=== PATIENT | male | born 1990 | race Caucasian/White ===

== ENCOUNTER 2022-11-25 09:30 | Emergency (ER) | payer SELFPAY ==
--- OUTSIDE RECORDS SUMMARY | 2022-11-25 09:34 | XMS REPORT | Continuity of Care Document ---
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 PELVIS W/CONT 49720 (Continued) control; mA and/or kV adjustment per patient size (includes targeted exams where dose is matched to clinical indication); or iterative reconstruction. Contrast material: ISOVUE 300; Contrast volume: 100 ml; Contrast route: INTRAVENOUS (IV); REPORTING DATA: Count of CT and Cardiac NM exams in prior 12 months: This patient has received 0 known CTs and 0 known cardiac nuclear medicine studies in the 12 months prior to the current study. COMPARISON: No relevant prior studies available. FINDINGS: Liver: Within normal limits. No mass. Gallbladder and bile ducts: No calcified stones. No ductal dilation. Pancreas: Within normal limits. No ductal dilation. Spleen: Within normal limits. No splenomegaly. Adrenal glands: Normal. No mass. Kidneys and ureters: Within normal limits. No hydronephrosis or hydroureter. Stomach and bowel: Moderate amount of fecal material within the colon. No evidence of bowel obstruction. Appendix: No evidence of appendicitis. Intraperitoneal space: No free air. No significant fluid collection. Vasculature: No abdominal aortic aneurysm. Retroaortic left renal vein. Lymph nodes: No enlarged lymph nodes. Urinary bladder: Unremarkable as visualized. Reproductive: Unremarkable as visualized. Bones/joints: Mild hypertrophic changes within the spine. A chronic pars interarticularis defect on the right at L5 without significant spondylolisthesis. Soft tissues: Unremarkable. IMPRESSION: CT Chest With Contrast; Diagnostic No CT evidence of acute abnormality within the chest. CT Abdomen And Pelvis WithContrast No CT evidence of acute abnormality within the abdomen or pelvis. PAGE 2 Signed Report (CONT INUED) Name: RANGEL BURCIAGA [facility] : 1990 Age/S: 32 / M [address] [place] [address] Blvd Unit #: [id number] Loc: [place] [address] Phys: Eduardo West MD Acct: [id number] Dis Date: Status: REG ER PHONE #: [phone] Exam Date: 06/12/2022 1705 FAX #: [phone] Reason: rib pain, back pain, chest and abd seatbelt sig EXAMS: CPT CODE: [id number] CT ABD PELVIS W/CONT 77005 (Continued) at 1834 Reported and signed by: Kee Pinzon M.D. CC: Eduardo West MD Technologist:RT Dionna(R)(CT) CTDI: DLP: Trnscb Date/Time: 06/12/2022 (1833) [email or web address] Orig Print D/T: S: 06/12/2022 (1833) PAGE 3 Signed Report- XR HUMERUS 2 + V [id number] 00:00:00 [facility] 1990 Sex: M FAX: Eduardo Juarez MD [phone] [place]: St: REG Name: RANGEL BURCIAGA [facility] [place] ER : 1990 Age/S: 32/M [address] [facility] Unit #: [id number] Loc: [place] [address] Phys: Eduardo West MD Acct: [id number] Dis Date: Status: [facility] ER PHONE #: [phone] Exam Date: 06/12/20224 FAX #: [phone] Reason: ARM PAIN EXAMS: CPT CODE: [id number] XR HUMERUS 2 + [place] [address] PROCEDURE INFORMATION: Exam: XR Left Humerus Exam date and time: 06/12/2022 4:37 PM Age: 32 years old Clinical indication: Left arm pain. TECHNIQUE: Imaging protocol: Radiologic exam of the left humerus. Views: 2 or more views. AP and Lateral COMPARISON: No relevant prior studies available. FINDINGS: Bones/joints: No fracture of other a cute osseous abnormality. No bony destructive lesions. The shoulder and elbow are grossly normal. Ifthere is a suspicion of injury to the shoulder or elbow, specific radiographs of the affected joint are recommended. Soft tissues: No radiopaque foreign bodies. Notes: If there is further concern, recommend follow- up radiographs or bone scan for complete assessment. IMPRESSION: Negative left humerus. at 1706 Reported and signedby: Garry Solares M.D. CC: Eduardo West MD Technologist: Asha Huber, RT(R); Richa CarsonRT(R) [facility]nrock[facility] Date/Time/By: 06/12/2022 (1705) : By: [email or web address] Orig Print D/T: S: 06/12/2022 (343)PAGE 1 Signed Report- XR SHOULDER 2 + V [id number] 00:00:00 [facility] 1990 Sex: M FAX: Eduardo Juarez MD [phone] [place]: St: REG Name: RANGEL BURCIAGA [facility] : 1990 Age/S: 32/M [address] [place] [address] Blvd Unit #: [id number] Loc: [place] [address] Phys: Eduardo West MD Acct: [id number] Dis Date: Status: REG ER PHONE #: [phone] Exam Date: 06/12/2022 1653 FAX #: [phone] Reason: SHOULDER PAIN EXAMS: CPT CODE: [id number] XR SHOULDER 2 + [place] [address] PROCEDURE INFORMATION: Exam: XR Left Shoulder Exam date and time: 06/12/2022 4:37 PM Age: 32 years old Clinical indication: Left shoulder pain. TECHNIQUE: Imaging protocol: Radiologic exam of the left shoulder. Views: 2 or more views. AP INT/ EXT ROTATION, SCAPULAR Y COMPARISON: No relevant prior studies available. FINDINGS: Bones/joints: No fracture, dislocation or acute change. The acromioclavicular and glenohumeral joints areunremarkable. No degenerative changes or destructive lesions. Soft tissues: There are no radiopaque foreign bodies. Notes: If there is further concern, follow-up radiographs or MRI of the shoulder may be performed for complete assessment. IMPRESSION: Negative left shoulder. at 1730 Reported and signed by: Garry Solares M.D. CC: Eduardo West MD Technologist: Asha Huber, RT(R); Richa Carson RT(R) Trnscrd Date/Time/By: 06/12/2022 (1729) : By: [email or web address] Orig Print D/T: S: 06/12/2022 (1729) PAGE 1 Signed Report- XR ELBOW 2 VIEWS [id number] 00:00:00 [facility] : 1990 Sex: M FAX: Eduardo Antony MD [phone] [place]: St: REG Name: RANGEL BURCIAGA [facility] : 1990 Age/S: 32/M [address] [place] [address] Unit #: [id number] Loc: [place] [address] Phys: Eduardo West MD Acct: [id number] Dis Date: Status: REG ER PHONE #: [phone] Exam Date: 06/12/20221653 FAX #: [phone] Reason: ELBOW PAIN EXAMS: CPT CODE: [id number] [place]R [place] [address] [place] [address] PROCEDURE INFORMATION: Exam: XR Left Elbow Exam date and time: 06/12/2022 4:37 PM Age: 32 years old Clinical indication: Other: Elbow pain TECHNIQUE: Imaging protocol: Radiologic exam of the left elbow. Views: 1 or 2 views. AP and Lateral COMPARISON: No relevant prior studies available. FINDINGS: Bones/joints: There is normal alignment without fractures or dislocations. The joint spaces are normal. There is no joint effusion. The radial head, olecranon and distal humeral condyle regions are unremarkable. Soft tissues: There is noelbow region soft tissue swelling. There are no radiopaque foreign bodies. Notes: If there is further concern, recommend follow-up radiographs or MRI for complete assessment. IMPRESSION: No fracture ordislocation. at 1734 Reported and signed by: Sukumar Jiménez M.D. CC: Eduardo West MD Technologist: Asha Huber RT(R); RT Rox(R) Trnscrd Date/Time/By: 06/12/2022 (1733) : By: [email or web address] Orig Print D/T: S: 06/12/2022 (0197) PAGE 1 Signed ReportNEEDLE EMG, 2 [id number] 10:24:00[facility] 1990 Sex: MINTRAOPERATIVE MONITORING REPORT Patient Name: Rangel Burciaga [facility] Surgery Date: 02/05/2020 [place] ELITE: [id number] Monitoring began at 08:27 and ended at 09:21 Surgeon:Alex Linares MD Examining Neurologist: Lupe Naqvi MD Monitoring Technologists: Cornelius Roberts Procedure: L5-S1 Decompression Free-running EMG of left and right Vastus Lateralis (L2-4), Tibialis Anterior (L4-5), Lateral Gastrocnemius (L5-S2), and Abductor Hallucis (S1-S2). Description: Intraoperative neurophysiological monitoring was performed free-running EMG of L2-S2 innervated muscle groups. A real-time connection with the examining neurologist was established and maintained throughout the operative procedure by the monitoring technologist. Free-running EMG of L2-S2 innervated muscle group was monitored continuously throughout the operative procedure with no sustained neurotonic discharges seen. Conclusion: The absence of sustained neurotonic discharges on free-running EMG suggests that the nerve roots monitored remained undisturbed Lupe Naqvi M.D. FL, FLUORO, NON-SPECIFIC, UP TO 1 [id number] 09:37:00 Reason for exam:->[facility]ization [facility] 1990 Sex: MFluoroscopic unit utilized for a procedure performed in the OR. No interpretation was requested. Refer to the operative report for findings. Refer to PACS for patient radiation dose information.FL, FLUORO, NON-SPECIFIC, UP TO 1 [id number] 09:02:00Reason for exam:->[facility]inectomy [facility] : 1990 Sex: MFINALREPORT C-ARM FLUOROSCOPY HISTORY: Lumbar laminectomy COMPARISON: 02/03/2020 FINDINGS: C-arm fluoroscopy was provided in the operating room. Fluoroscopy time was reported as 20.8 seconds. No radiologist was present. Single spot lateral intraoperative radiograph of the lumbar spine was obtained. This demonstrates a posterior localization device dorsal to L5-S1. This level was communicated to Dr. Linares in the operating room who was in agreement with this assessment. Signed: Yuliet Carr MDReport Verified Date/Time: 02/05/2020 09:02:34 Reading Location: [address] Transitional Reading Room SARS-COV2/RT-PCR ([facility])2020-02-04 15:49:00 Test Item Value Reference Range Interpretation Comments SARS-COV2/RT-PCR (test Negative Not Detected, Negative, code = [id number]) See external report for linked test SARS-COV-[address] [facility] (test code = [id number]) Negative result for this test determines that SARS-CoV-2 RNA was not present in the specimen above the Limit of Detection (LOD). However, Negative results do not preclude SARS-CoV-2 infection and should not be used as the sole basis for treatment or patient management decisions. Negative results must be combined with clinical observations, patient history, and epidemiological information. A false negative result may occur if a specimen is improperly collected, transported or handled. A false negative result should be considered if patient's recent exposures or clinical presentation indicate that COVID-19 (SARS-CoV-2) is likely and diagnostic tests for other causes of illness are negative. Re-testing should be considered in cases of suspected false negatives.The limit of detection for this assay is 800 copies/mL.This SARS CoV-2 test is a real-time RT-PCR test intended for the qualitative detection of nucleic acid from SARS-CoV-2 in a nasopharyngeal swab specimen collected from individuals suspected of COVID-19 by their healthcare provider.This test has not been Food and Drug Administration (FDA) cleared or approved. This is a modified version of an approved Emergency Use Authorization (EUA) and is in the process of review by the FDA. Once authorized by the FDA, the issued EUA will be effective until the declaration that circumstances exist justifying the authorization of the emergency use ofin vitro diagnostic tests for detection and/or diagnosis of COVID-19 is terminated under Section 564(b)(2) of the Act or the EUA is revoked under Section 564(g) of the Act.Fact Sheet for Healthcare Prov iders:https://www.better..[employer]/sites/default/files/product/documents/Fact_Sheet_HC _Fthnbinqz_Gqfy_VKOW-QzE-6.pdfFact Sheet for Healthcare Patients:https://www.better..[employer]/sites/default/files/product/docume nts/Beeu_Bliaj_Vuctcgre_Iawj_NFEW-SmX-5.pdfPerforming Laboratory:[facility].[place], [place] [address]DED, CHEST, 1 VIEW, NON [id number] 06:20:00Reason for exam:->pre opShould this be performed at the bedside?->Yes [facility] : 1990 Sex: MFINALREPORT History: Preoperative evaluation, surgery unspecified. Comparison: None.Findings: A single view of the chest is submitted. The cardiomediastinal contours are unremarkable. There is no focal consolidation, pneumothorax, large pleural effusion or evidence of overt pulmonary edema. There is no acute bony abnormality. Impression: No active cardiopulmonary abnormality. Signed:Damon Moya MDReport Verified Date/Time: 02/04/2020 06:20:42 MR, SPINE, LUMBAR, [id number] 22:22:00Unlisted Reason for Exam - Click Yes and Enter Reason Below- >YesUnlisted Reason for Exam->known spinal mass, now leg weak and gradual incontinenceK[facility]AL[facility] : 1990 Sex: MFINALREPORT EXAM: MR, SPINE, LUMBAR, WITH \T\ WITHOUT CONTRAST CLINICAL INDICATION: Right leg weakness with L5-S1 mass. TECHNIQUE: Pre-contrast sagittal T1-, T2-, and T2-w fat-saturatedimages, and axial T1- and T2-w images of the lumbar spine. Post-contrast axial T1-w and sagittal T1-w fat-saturated images. Intravenous contrast material was administered for the examination. COMPARISON: None. FINDINGS:Spine Numbering: For purposes of this dictation, it is assumed that there are 5 epo-hon-tgnuzyu, lumbar-type vertebrae, and the most caudal fully segmented lumbar vertebra is labeled L5. Alignment: Normal Vertebral Bodies: Normal in height Marrow Signal: Expected Intervertebral Discs:Multilevel disc dessication at L4-L5 and L5-S1 without loss of disc space height Conus Medullaris: Terminates at a normal level, L1 Cauda Equina: Normal Paraspinal Soft Tissues: Normal Individual Levels: There is a right subarticular cystic structure at L5-S1 with measurements of 1.3 x 1.2 x 1.4 cm (AP, TRV, SI) with T2 hyperintensity and layering material with T1 hyperintensity. No associated internal enhancement. The cystic structure impinges the descending right S1 nerve root. Otherwise, no significant degenerative changes. No spinal canal or foraminal stenosis at other levels. IMPRESSION: Rightsubarticular cystic structure at L5-S1 with impingement of the descending right S1 nerve root. Differential includes a spinal synovial cyst or ganglion cyst. Signed: Pallavi Beyer MDReport Verified Date/Time: 02/03/2020 22:22:29 URINALYSIS W/ REFLEX URINE CULTURE 2020-02-03 20:33:00 Test Item Value Reference Range Interpretation Comments COLOR (BEAKER) (test code = Yellow 470) CLARITY (BEAKER) (test code = Clear 469) SPECIFIC GRAVITY UA (BEAKER) 1.010 1.001-1.035 (test code = 468) PH UA (BEAKER) (test code = 6.5 5.0-8.0 467) PROTEIN UA (BEAKER) (test code Negative Negative = 464) GLUCOSE UA (BEAKER) (test code Negative Negative = 365) KETONES UA (BEAKER) (test code Negative Negative = 371) BILIRUBIN UA (BEAKER) (test Negative Negative code = 462) BLOOD UA (BEAKER) (test code = Negative Negative 461) NITRITE UA (BEAKER) (test code Negative Negative = 465) LEUKOCYTE ESTERASE UA (BEAKER) Negative Negative (test code = 466) UROBILINOGEN UA (BEAKER) (test 0.2 mg/dL 0.2-1.0 code = 463) BACTERIA (BEAKER) (test code = None Seen 517) RBC UA-MANUAL (BEAKER) (test None Seen /HPF code = 1659) WBC UA-MANUAL (BEAKER) (test None Seen /HPF code = 1661) SQUAMOUS EPITHELIAL MANUAL <5 /HPF (BEAKER) (test code = 1663) SOURCE(BEAKER) (test code = 2795) COMPREHENSIVE METABOLIC [id number] 20:13:00 Test Item Value Reference Range Interpretation Comments TOTAL PROTEIN 6.9 gm/dL 6.0-8.5 (BEAKER) (test code = 770) ALBUMIN (BEAKER) 4.2 g/dL 3.5-5.0 (test code = 1145) ALKALINE PHOSPHATASE 57 U/L 30-115 (BEAKER) (test code = 346) BILIRUBIN TOTAL 0.4 mg/dL 0.1-1.2 (BEAKER) (test code = 377) SODIUM (BEAKER) (test 138 meq/L 135-148 code = 381) POTASSIUM (BEAKER) 4.0 meq/L 3.6-5.5 (test code = 379) CHLORIDE (BEAKER) 101 meq/L 98-106 (test code = 382) CO2 (BEAKER) (test 27 meq/L 20-29 code = 355) BLOOD UREA NITROGEN 12 mg/dL 10-26 (BEAKER) (test code = 354) CREATININE (BEAKER) 0.93 mg/dL 0.50-1.20 (test code = 358) GLUCOSE RANDOM 89 mg/dL 70-110 (BEAKER) (test code = 652) CALCIUM (BEAKER) 9.3 mg/dL 8.5-10.5 (test code = 697) AST (SGOT) (BEAKER) 31 U/L 5-40 (test code = 353) ALT (SGPT) (BEAKER) 39 U/L 5-50 (test code = 347) EGFR (BEAKER) (test INSUFFIC IENT CLINICAL code = 1092) DATA TO CALCULA TE ESTIMATED GFR. Spot Machine Operator ID - [id number] ID - [id number] ID - [id number] ID - [id number] ID - [id number] ID - [id number] ID - [id number] ID - [id number] ID - [id number] ID - [id number] ID - [id number] ID - [id number] ID - [id number] ID - [id number] ID - [id number] ID - [id number] ID - [id number] ID - [id number] ID - [id number] 19:59:00 Test Item Value Reference Range Interpretation Comments PROTIME (BEAKER) (test 10.5 seconds 9.3-12.0 Final Information code = 759) (Auto Output) INR (BEAKER) (test 0.96 <=5.90 Final Inf ormation code = 370) (Auto Output) PARTIAL THROMBOPLASTIN 24.1 seconds 23.0-35.0 Final Information TIME (BEAKER) (test (Auto Ou tput) code = 760) RECOMMENDED COUMADIN/WARFARIN INR THERAPY RANGESSTANDARD DOSE: 2.0 - 3.0 Includes: PROPHYLAXIS for venous thrombosis, systemic embolization; TREATMENT for venous thrombosis and/or pulmonary embolus.HIGH RISK: Target INR is 2.5-3.5 for patients with mechanical heart valves.CBC W/PLT COUNT & AUTO [id number] 19:46:00 Test Item Value Reference Range Interpretation Comments WHITE BLOOD CELL COUNT (BEAKER) 11.6 K/ L 4.0-10.0 H (test code = 775) RED BLOOD CELL COUNT (BEAKER) 4.75 M/ L 4.20-5.80 (test code = 761) HEMOGLOBIN (BEAKER) (test code = 15.8 GM/DL 13.0-16.8 410) HEMATOCRIT (BEAKER) (test code = 44.9 % 36.0-50.0 411) MEAN CORPUSCULAR VOLUME (BEAKER) 94.5 fL 82.0-99.0 (test code = 753) MEAN CORPUSCULAR HEMOGLOBIN 33.3 pg 27.0-33.0 H (BEAKER) (test code = 751) MEAN CORPUSCULAR HEMOGLOBIN CONC 35.2 GM/DL 32.0-36.0 (BEAKER) (test code = 752) RED CELL DISTRIBUTION WIDTH 11.5 % 12.0-15.0 L (BEAKER) (test code = 412) PLATELET COUNT (BEAKER) (test 245 K/CU MM 150-430 code = 756) MEAN PLATELET VOLUME (BEAKER) 9.1 fL 6.0-11.5 (test code = 754) NUCLEATED RED BLOOD CELLS 0 /100 WBC 0-0 (BEAKER) (test code = 413) NEUTROPHILS RELATIVE PERCENT 64 % (BEAKER) (test code = 429) LYMPHOCYTES RELATIVE PERCENT 26 % (BEAKER) (test code = 430) MONOCYTES RELATIVE PERCENT 7 % (BEAKER) (test code = 431) EOSINOPHILS RELATIVE PERCENT 3 % (BEAKER) (test code = 432) BASOPHILS RELATIVE PERCENT 0 % (BEAKER) (test code = 437) NEUTROPHILS ABSOLUTE COUNT 7.35 K/ L 1.80-8.00 (BEAKER) (test code = 670) LYMPHOCYTES ABSOLUTE COUNT 2.99 K/ L 1.48-4.50 (BEAKER) (test code = 414) MONOCYTES ABSOLUTE COUNT (BEAKER) 0.80 K/ L 0.00-1.30 (test code = 415) EOSINOPHILS ABSOLUTE COUNT 0.29 K/ L 0.00-0.50 (BEAKER) (test code = 416) BASOPHILS ABSOLUTE COUNT (BEAKER) 0.04 K/ L 0.00-0.20 (test code = 417) IMMATURE GRANULOCYTES-RELATIVE 1 % 0-0 H PERCENT (BEAKER) (test code = 5473)
[2022-11-25] MEDS ORDERED: FLUORESCEIN SODIUM 1 MG/WRAP ONE (10:02)
[2022-11-25] MEDS ORDERED: TETRACAINE HCL 0.5% 4ML OPTH ONE (10:02)
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
--- NOTE | 2022-11-25 10:10 | ER ---
Nurse's Notes [facility] Name: Rangel Darby Age: 32 yrs Sex: Male : 1990 Arrival Date: 11/25/2022 Time: 09:30 Bed 11 Private MD: Diagnosis: Other acute conjunctivitis Presentation: 11/25 09:50 Chief complaint: Patient states: Bilateral eyes burning, left eye worse. jl7 09:50 Coronavirus screen: At this time, the client does not indicate any symptoms associated jl with coronavirus-19. Ebola Screen: No symptoms or risks identified at this time. Initial Sepsis Screen: Does the patient meet any 2 criteria? No. Patient's initial sepsis screen is negative. Does the patient have a suspected source of infection? No. Patient's initial sepsis screen is negative. Risk Assessment: Do you want to hurt yourself or someone else? Patient reports no desire to harm self or others. Onset of symptoms is unknown. 09:50 Method Of Arrival: Ambulatory jl7 09:50 Acuity: CHANDAN 3 jl7 Triage Assessment: 10:08 General: Appears in no apparent distress. uncomfortable, Behavior is calm, cooperative, jl7 appropriate for age. Pain: Complains of pain in left eye Pain currently is 2 out of 10 on a pain scale. at worst was 9 out of 10 on a pain scale. EENT: Eyes are tearing on left eye Sclera/Cornea are reddened in left eye. Historical: - Allergies: 10:08 No Known Allergies; jl7 - Home Meds: 10:08 None [Active]; jl7 - PMHx: 10:08 None; jl7 - PSHx: 10:08 None; jl7 - Immunization history:: Adult Immunizations unknown. - Social history:: Smoking status: Patient reports the use of cigarette tobacco products. Vital Signs: 09:50 BP 114 / 66; Pulse 66; Resp 17; Temp 97.7; Pulse Ox 100% ; Weight 77.11 kg; Height 5 jl7 ft. 9 in. ; Pain 2/10; 09:50 Body Mass Index 25.10 (77.11 kg, 175.26 cm) jl7 09:50 Pain Scale: Adult jl7 Visual Acuity: 09:55 Left Eye Visual acuity 20/30, ; Right Eye Visual acuity 20/15, ; Both Eyes Visual jl7 acuity 20/15; With Lenses; ED Course: 09:34 Patient arrived in ED. mg5 09:34 Kate Maxwell [facility] jh7 09:34 Kendall Guy MD is Attending Physician. jh7 09:47 Carlos Masters, RN is Primary Nurse. jl7 09:55 Patient has correct armband on for positive identification. Provided Education on: Use jl7 of call zayas. 10:07 Triage completed. jl7 10:08 Arm band placed on right wrist. jl7 Administered Medications: 10:05 Drug: Fluorescein Ophthalmic Strip 1 strip Ophthalmic once Route: Ophthalmic; Site: jl7 left eye; 10:05 Drug: Tetracaine Ophthalmic Drops 0.5 % 1 drops Ophthalmic once Route: Ophthalmic; jl7 Site: left eye; 10:12 Follow up: Response: No adverse reaction jl7 10:13 Follow up: Response: No adverse reaction jl7 10:24 Drug: Dexamethasone IM 10 mg IM once Route: IM; Site: right deltoid; jl7 10:37 Follow up: Response: No adverse reaction jl7 Medication: 09:55 VIS not applicable for this client. jl7 Outcome: 10:09 Discharge ordered by . jh7 10:38 Discharged to home ambulatory, jl7 10:38 Condition: stable 10:38 Discharge instructions given to patient, Instructed on discharge instructions, follow up and referral plans. medication usage, Demonstrated understanding of instructions, follow-up care, medications, Prescriptions given X 1, 10:38 Patient left the ED. jl7 Signatures: Carlos Masters RN RN jl7 Kate Maxwell FNP PREVENTATIVE MAINTENANCE TECHNICIAN [facility] Lillie Aldana 5
[2022-11-25] MEDS ORDERED: dexAMETHasone 10 MG/ML VIAL ONE (10:28)
[2022-11-25 10:53] VITALS: BP 114/66; TEMP 97.7; O2SAT 100
== END 2022-11-25 10:38 | disposition home or self-care (01) ==
LOC: ER 09:30
DX: H10.32 Unspecified acute conjunctivitis, left eye (principal)
CPT/HCPCS: 96372; 99284; J1100

== ENCOUNTER → 2023-03-17 | Emergency (ER) | payer SELFPAY ==
[~2023-03-17] MED LIST: DIPHENHYDRAMINE 50 MG/ML VIAL ONE; KETOROLAC 30 MG/ML INJ ONE; METOCLOPRAMIDE 10 MG/2mL INJ ONE; NA CHLORIDE 0.9% 1,000 ML ONE; dexAMETHasone 10 MG/ML VIAL ONE
--- NOTE | 2023-03-17 20:47 | EDPHYS ---
Physician Documentation [facility] Name: Rangel aDrby Age: 33 yrs Sex: Male : 1990 Arrival Date: 03/17/2023 Time: 17:32 Bed 15 Private MD: PETER Physician Mike Betancourt HPI: 03/17 21:20 This 33 yrs old Male presents to ER via Ambulatory with complaints of Nausea/Vomiting, kb Migraines. 21:20 Patient is a 33-year-old male who presents for headache that got bad at 3 PM. States he kb has had headaches daily for the last year and some are as bad as this 1 other times it is tolerable. States he takes Tylenol with codeine when the headaches are more severe but it did not work today. Reports nausea and vomiting.. 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 - Social history:: Smoking status: Patient reports the use of cigarette tobacco products, smokes one-half pack cigarettes per day. ROS: 21:18 Constitutional: Negative for fever, chills, and weight loss, kb 21:18 Abdomen/GI: Positive for nausea and vomiting, 21:18 Neuro: Positive for headache, 21:18 All other systems are negative, Exam: 21:18 Head/Face: Normocephalic, atraumatic. Eyes: Pupils equal round and reactive to light, kb extra-ocular motions intact. Lids and lashes normal. Conjunctiva and sclera are non-icteric and not injected. Cornea within normal limits. Periorbital areas with no swelling, redness, or edema. ENT: Moist Mucous membranes Cardiovascular: Regular rate Respiratory: Respirations even and unlabored. No increased work of breathing. Talking in full sentences Skin: Warm, dry with normal turgor. Normal color. MS/ Extremity: Pulses equal, no cyanosis. Neurovascular intact. Full, normal range of motion. Neuro: Awake and alert, GCS 15, oriented to person, place, time, and situation. Moves all extremities. Normal gait. 21:18 Constitutional: The patient appears alert, awake, in obvious pain, Vital Signs: 18:03 BP 125 / 82; Pulse 74; Resp 16; Temp 97.6(O); Pulse Ox 100% on R/A; Weight 70.31 kg; tl4 Height 5 ft. 10 in. ; Pain 10/10; 20:32 BP 112 / 68; Pulse 59; Resp 15 S; Pulse Ox 98% on R/A; jw7 21:00 BP 112 / 66; Pulse 60; Resp 15 S; Pulse Ox 99% on R/A; jw7 18:03 Body Mass Index 22.24 (70.31 kg, 177.8 cm) tl4 18:03 Pain Scale: Adult tl4 MDM: 17:48 Patient medically screened. kb 21:19 Differential diagnosis: Migraine, tension headache, sinusitis, cluster headache. Data kb reviewed: vital signs, nurses notes. Test considered but Not performed: CT: CT head considered but patient has had similar headaches in the past.. Counseling: I had a detailed discussion with the patient and/or guardian regarding the historical points, exam findings, and any diagnostic results supporting the discharge/admit diagnosis, the need for outpatient follow up, a neurologist, to return to the emergency department if symptoms worsen or persist or if there are any questions or concerns that arise at home. Response to treatment: the patient's symptoms have resolved after treatment, the patient's pain is gone. ED course: Patient has follow-up with a neurosurgeon on 04/16/2023. 03/17 18:12 Order name: IV Start; Complete Time: 19:39 kb Administered Medications: 19:39 Drug: NS 0.9% IV 1000 ml IV at 1000 ml once Route: IV; Rate: 1000 ml; Site: right cm10 antecubital; 21:36 Follow up: Response: No adverse reaction; IV Status: Completed infusion; IV Intake: jw7 1000ml 19:52 Drug: Decadron - Dexamethasone IVP 10 mg IVP once Route: IVP; Site: right antecubital; cm10 21:36 Follow up: Response: No adverse reaction jw7 19:52 Drug: Ketorolac IVP 15 mg IVP once Route: IVP; Site: right antecubital; cm10 21:36 Follow up: Response: No adverse reaction jw 19:53 Drug: metoCLOPramide IVP 10 mg IVP once; over 1 to 2 minutes Route: IVP; Site: right cm10 antecubital; 21:36 Follow up: Response: No adverse reaction jw7 19:53 Drug: diphenhydrAMINE IVP 12.5 mg IVP once Route: IVP; Site: right antecubital; cm10 21:36 Follow up: Response: No adverse reaction jw7 Disposition Summary: 03/17/23 20:47 Discharge Ordered Notes: Location: Home kb Condition: Stable kb Diagnosis - Migraine without aura, not intractable kb Followup: kb - With: Emergency Department - When: As needed - Reason: Worsening of condition Followup: kb - With: Private Physician - When: 2 - 3 days - Reason: Recheck today's complaints, Continuance of care, Re-evaluation by your physician Discharge Instructions: - Discharge Summary Sheet kb - Migraine Headache, [id number] kb Forms: - Medication Reconciliation Form kb - Thank You Letter kb - Antibiotic Education kb - Prescription Opioid Use kb - Patient Portal Instructions kb - Leadership Thank You Letter kb Signatures: Marisol Terry FNP-C FNP-Estrella Cross, RN RN cm10 Charlie Izaguirre4 Pearl Holguin RN jw7
--- NOTE | 2023-03-17 20:47 | ER ---
Nurse's Notes [facility] Name: Rangel Darby Age: 33 yrs Sex: Male : 1990 Arrival Date: 03/17/2023 Time: 17:32 Bed 15 Private MD: Diagnosis: Migraine without aura, not intractable Presentation: 03/17 18:03 Chief complaint: Patient states: Pt c/o headache that feels like "its going to tl4 explode". 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 Pt states he is usually able to manage headaches at home but states this one is much worse. +nausea/vomiting. Coronavirus screen: At this time, the client does not indicate any symptoms associated with coronavirus-19. Ebola Screen: No symptoms or risks identified at this time. Initial Sepsis Screen: Does the patient meet any 2 criteria? No. Patient's initial sepsis screen is negative. Does the patient have a suspected source of infection? No. Patient's initial sepsis screen is negative. Risk Assessment: Do you want to hurt yourself or someone else? Patient reports no desire to harm self or others. Onset of symptoms was March 17, 2023 at 15:00. 18:03 Method Of Arrival: Ambulatory tl4 18:03 Acuity: CHANDAN 3 tl4 Triage Assessment: 18:11 General: Appears distressed, uncomfortable, Behavior is calm, cooperative. Pain: tl4 Complains of pain in head. EENT: No deficits noted. No signs and/or symptoms were reported regarding the EENT system. Neuro: Reports headache. Cardiovascular: No deficits noted. Respiratory: No deficits noted. GI: Reports tolerance of fluids, tolerance of food. : No deficits noted. No signs and/or symptoms were reported regarding the genitourinary system. Derm: No deficits noted. No signs and/or symptoms reported regarding the dermatologic system. 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 - Social history:: Smoking status: Patient reports the use of cigarette tobacco products, smokes one-half pack cigarettes per day. Screenin:15 [facility] ED Fall Risk Assessment (Adult) History of falling in the last 3 months, jw7 including since admission No falls in past 3 months (0 pts) Score/Fall Risk Level 0 - 2 = Low Risk Oriented to surroundings, Maintained a safe environment, Educated pt \\T\\ family on fall prevention, incl call for assistance when getting out of bed. Abuse screen: Denies threats or abuse. Denies injuries from another. Nutritional screening: No deficits noted. Tuberculosis screening: No symptoms or risk factors identified. Assessment: 19:00 General: See Triage Assessment. jw7 20:32 Reassessment: Patient appears in no apparent distress at this time. No changes from jw7 previously documented assessment. Patient and/or family updated on plan of care and expected duration. Pain level reassessed. Patient is alert, oriented x 3, equal unlabored respirations, skin warm/dry/pink. Vital Signs: 18:03 BP 125 / 82; Pulse 74; Resp 16; Temp 97.6(O); Pulse Ox 100% on R/A; Weight 70.31 kg; tl4 Height 5 ft. 10 in. ; Pain 10/10; 20:32 BP 112 / 68; Pulse 59; Resp 15 S; Pulse Ox 98% on R/A; jw7 21:00 BP 112 / 66; Pulse 60; Resp 15 S; Pulse Ox 99% on R/A; jw7 18:03 Body Mass Index 22.24 (70.31 kg, 177.8 cm) tl4 18:03 Pain Scale: Adult tl4 ED Course: 17:33 Patient arrived in ED. ra3 17:48 Marisol Terry FNP-C [facility]. kb 17:48 Mike Betancourt MD is Attending Physician. kb 18:03 Arm band placed on left wrist. tl4 18:06 Triage completed. tl4 19:15 Patient has correct armband on for positive identification. Bed in low position. Call jw7 light in reach. Side rails up X 1. 19:40 Inserted saline lock: 20 gauge in right antecubital area, using aseptic technique. cm10 20:06 Pearl Holguin, TAMELA is Primary Nurse. jw7 21:33 No provider procedures requiring assistance completed. IV discontinued, intact, jw7 bleeding controlled, No redness/swelling at site. Pressure dressing applied. 21:34 Provided Education on: discharge instructions. jw7 Administered Medications: 19:39 Drug: NS 0.9% IV 1000 ml IV at 1000 ml once Route: IV; Rate: 1000 ml; Site: right cm10 antecubital; 21:36 Follow up: Response: No adverse reaction; IV Status: Completed infusion; IV Intake: jw7 1000ml 19:52 Drug: Decadron - Dexamethasone IVP 10 mg IVP once Route: IVP; Site: right antecubital; cm10 21:36 Follow up: Response: No adverse reaction jw7 19:52 Drug: Ketorolac IVP 15 mg IVP once Route: IVP; Site: right antecubital; cm10 21:36 Follow up: Response: No adverse reaction jw7 19:53 Drug: metoCLOPramide IVP 10 mg IVP once; over 1 to 2 minutes Route: IVP; Site: right cm10 antecubital; 21:36 Follow up: Response: No adverse reaction jw7 19:53 Drug: diphenhydrAMINE IVP 12.5 mg IVP once Route: IVP; Site: right antecubital; cm10 21:36 Follow up: Response: No adverse reaction jw7 Medication: 21:34 VIS not applicable for this client. jw7 Intake: 21:36 IV: 1000ml; Total: 1000ml. jw7 Outcome: 20:47 Discharge ordered by MD. webster 21:33 Discharged to home ambulatory, jw7 21:33 Condition: stable 21:33 Discharge instructions given to patient, Instructed on discharge instructions, follow up and referral plans. Demonstrated understanding of instructions, follow-up care, 21:35 Patient left the ED. jw7 Signatures: Marisol Terry FNP-C FNP-Pearl Garrett RN RN jw7 Estrella Zambrano RN RN cm10 Zina, Charlie 4 Peyton Flaherty 3
[2023-03-18 10:04] VITALS: TEMP 97.6
[2023-03-18 10:22] VITALS: BP 112/66; O2SAT 99
== END ==
LOC: ER 17:32
DX: G43.009 Migraine without aura, not intractable, without status migrainosus (principal); R11.2 Nausea with vomiting, unspecified
CPT/HCPCS: J1100; J1200; J2765; J7030

== ENCOUNTER 2023-07-30 07:36 | Emergency (ER) | payer OTHER ==
[2023-07-30] MEDS ORDERED: MORPHINE 4 MG/ML SYR ONE (08:03)
[2023-07-30] MEDS ORDERED: METOCLOPRAMIDE 10 MG/2mL INJ ONE (08:03)
[2023-07-30] MEDS ORDERED: NA CHLORIDE 0.9% 1,000 ML ONE (08:03)
--- NOTE | 2023-07-30 08:30 | RAD REPORT ---
EXAM DESCRIPTION: CT - Head Brain Wo Cont - 07/30/2023 8:22 am CLINICAL HISTORY: Headache COMPARISON: none TECHNIQUE: Computed axial tomography of the head was obtained. IV contrast was not requested. All CT scans are performed using dose optimization technique as appropriate and may include automated exposure control or mA/KV adjustment according to patient size. FINDINGS: An intracranial bleed is not seen The ventricles are normal in caliber No significant hypodense areas within the brain visualized No extra-axial fluid collection is noted. Fluid within the sinuses/ mastoids is not seen IMPRESSION: No acute intracranial abnormality is seen If patient's symptoms persist MRI of the brain would be recommended
--- NOTE | 2023-07-30 08:43 | RAD REPORT ---
EXAM DESCRIPTION: CTHead angio07/30/2023 8:22 am CLINICAL HISTORY: Headache COMPARISON: none TECHNIQUE: 100 cc Isovue [address] angiogram of the head was obtained. 3D MIPS reconstruction performed. All CT scans are performed using dose optimization technique as appropriate and may include automated exposure control or mA/KV adjustment according to patient size. FINDINGS: The basilar, anterior cerebral, middle cerebral and posterior cerebral arteries do not dem onstrate a significant stenosis Mild calcified plaque distal internal carotid arteries An aneurysm is not seen No large vessel occlusion IMPRESSION: No significant abnormality is displayed
--- NOTE | 2023-07-30 08:43 | RAD REPORT ---
EXAM DESCRIPTION: Hari Angio07/30/2023 8:22 am CLINICAL HISTORY: Headache COMPARISON: None TECHNIQUE: 100 cc Isovue [address] angiogram of the neck was obtained. 3D MIPS reconstruction performed. All CT scans are performed using dose optimization technique as appropriate and may include automated exposure control or mA/KV adjustment according to patient size. FINDINGS: Visualized aortic arch and great vessels unremarkable Common carotid, internal carotid and external carotid arteries bilaterally unremarkable Vertebral arteries unremarkable No dissection is seen. No high-grade stenosis Nascet crieria Mild stenosis 0 to 49 % Moderate stenosis 50-69% Severe stenosis 70-99% IMPRESSION: No significant abnormality is displayed
--- NOTE | 2023-07-30 09:08 | EDPHYS ---
Physician Documentation [facility] Name: Rangel Darby Age: 33 yrs Sex: Male : 1990 Arrival Date: 07/30/2023 Time: 07:36 Bed 4 Private MD: ED Physician Kendall Guy HPI: 07/29 08:07 This 33 yrs old Male presents to ER via Ambulatory with complaints of Headache. rn 08:07 The patient complains of pain to the forehead and right eye. The patient describes the rn headache as aching. Onset: The symptoms/episode began/occurred 9 month(s) ago. Severity of symptoms: At its worst the pain was moderate, in the emergency department the pain is unchanged. The symptoms are alleviated by nothing. the symptoms are aggravated by nothing. The patient has experienced similar episodes in the past, chronically, today's symptoms are similar. The patient has not recently seen a physician. 08:13 Patient reports daily headache for 9 months, not getting better, prescribed rn amitriptyline recently and does not feel like it is helping. Denies new head injury. No fever or chills. Vomited once. No infectious symptoms. No neck stiffness or pain. Family history of aneurysm. Denies previous imaging of brain.. Historical: - Allergies: 07:50 Tramadol; ss - Home Meds: 07:50 amitriptyline 25 mg oral tablet 1 tab daily [Active]; ss - PMHx: 07:50 Arthritis; migraines (Cyst removal from spinal cord); ss - PSHx: 07:50 Cyst removal from spinal cord; ss - Immunization history:: Client reports having NOT received the Covid vaccine. - Infectious Disease History:: Denies. - Social history:: Smoking status: Patient reports the use of cigarette tobacco products, smokes one-half pack cigarettes per day. - Family history:: not pertinent. - Hospitalizations: : No recent hospitalization is reported. ROS: 08:07 Constitutional: Negative for fever, chills, and weight loss, Eyes: Negative for injury, rn pain, redness, and discharge, Neck: Negative for injury, pain, and swelling, Cardiovascular: Negative for chest pain, palpitations, and edema, Respiratory: Negative for shortness of breath, cough, wheezing, and pleuritic chest pain, Abdomen/GI: Negative for abdominal pain, diarrhea, and constipation, Back: Negative for injury and pain, MS/Extremity: Negative for injury and deformity, Skin: Negative for injury, rash, and discoloration, Neuro: Negative for weakness, numbness, tingling, and seizure, Exam: 08:07 Constitutional: This is a well developed, well nourished patient who is awake, alert, rn and in no acute distress. Ambulatory to room without difficulty or assistance. Head/Face: Normocephalic, atraumatic. Eyes: Pupils equal round and reactive to light, extra-ocular motions intact. Lids and lashes normal. Conjunctiva and sclera are non-icteric and not injected. Cornea within normal limits. Periorbital areas with no swelling, redness, or edema. Neck: Trachea midline, no masses palpated, and no cervical lymphadenopathy. Supple, full range of motion without nuchal rigidity, or vertebral point tenderness. No Meningismus. Cardiovascular: Regular rate and rhythm. No pulse deficits. Respiratory: No increased work of breathing, no retractions or nasal flaring. Neuro: Awake and alert, GCS 15, oriented to person, place, time, and situation. Cranial nerves II-XII grossly intact. Motor strength 5/5 in all extremities. Sensory grossly intact. Vital Signs: 07:47 BP 132 / 96; Pulse 86; Resp 16; Temp 97.8(O); Pulse Ox 98% on R/A; Weight 68.04 kg; ss Height 5 ft. 9 in. ; Pain 8/10; 08:10 Pain 10/10; ap3 09:03 BP 110 / 76; Pulse 57; Pulse Ox 100% on R/A; ap3 07:47 Body Mass Index 22.15 (68.04 kg, 175.26 cm) ss 07:47 Pain Scale: Adult ss 08:10 Pain Scale: Adult ap3 [place] Coma Score: 09:06 Eye Response: spontaneous(4). Motor Response: obeys commands(6). Verbal Response: rn oriented(5). Total: 15. MDM: 07:39 Patient medically screened. rn 09:06 Differential diagnosis: cluster headache, intracerebral hemorrhage, migraine, neoplasm, rn sinusitis, tension headache, trigeminal neuralgia, vasomotor headache. Data reviewed: vital signs, nurses notes, radiologic studies, CT scan, and as a result, I will discharge patient. Counseling: I had a detailed discussion with the patient and/or guardian regarding the historical points, exam findings, and any diagnostic results supporting the discharge/admit diagnosis, radiology results, the need for outpatient follow up, to return to the emergency department if symptoms worsen or persist or if there are any questions or concerns that arise at home. Special discussion: I discussed with the patient/guardian in detail that at this point there is no indication for admission to the hospital. It is understood, however, that if the symptoms persist or worsen the patient needs to return immediately for re-evaluation. Based on the history and exam findings, there is no indication for further emergent testing or inpatient evaluation. I discussed with the patient/guardian the need to see the neurologist for further evaluation of the symptoms. ED course: No acute findings and imaging. Normal neurological exam. Feels better. Will discharge home, has follow-up appointment with neurology already scheduled. Return precautions given and understood. I have personally reviewed all of the results, including but not limited to imaging deemed necessary to safely discharge this patient at this time. All results given to and printed out for patient. I personally went over all the results with the patient and answered all questions. Patient will follow-up with PCP and or specialist as discussed. Return precautions given and understood.. 07/29 07:56 Order name: CT Head Brain wo Cont; Complete Time: 08:47 rn 07/29 07:56 Order name: Head Angio CT; Complete Time: 08:47 rn 07/29 07:56 Order name: Neck Angio CT; Complete Time: 08:47 rn 07/29 07:56 Order name: IV Start; Complete Time: 08: rn Administered Medications: 08: Drug: NS 0.9% IV 1000 ml IV at 1000 ml once Route: IV; Rate: 1000 ml; Site: right ap3 forearm; : Follow up: IV Status: Completed infusion; IV Intake: 1000ml ap3 08: Drug: morphine IVP or IV 4 mg IVP once over 4 mins Route: IVP; Infused Over: 4 mins; ap3 Site: right forearm; : Follow up: Response: No adverse reaction; Pain is decreased ap3 08:13 Drug: metoCLOPramide IVP 10 mg IVP once; over 1 to 2 minutes Route: IVP; Site: right ap3 forearm; :22 Follow up: Response: No adverse reaction ap3 09:21 Drug: Decadron - Dexamethasone IVP 10 mg IVP once Route: IVP; Site: right forearm; ap3 09:42 Follow up: Response: No adverse reaction ap3 09:22 Drug: Ketorolac IVP 30 mg IVP once Route: IVP; Site: right forearm; ap3 09:42 Follow up: Response: No adverse reaction; Pain is decreased ap3 Disposition Summary: 07/30/23 09:08 Discharge Ordered Notes: Location: Home rn Problem: chronic rn Symptoms: have improved rn Condition: Stable rn Diagnosis - Headache rn Followup: rn - With: Private Physician - When: As needed - Reason: Recheck today's complaints, Re-evaluation by your physician Discharge Instructions: - Discharge Summary Sheet rn - General Headache Without Cause rn Forms: - Medication Reconciliation Form rn - 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 EDMS EDMS
--- NOTE | 2023-07-30 09:08 | ER ---
Nurse's Notes [facility] Name: Rangel Darby Age: 33 yrs Sex: Male : 1990 Arrival Date: 07/30/2023 Time: 07:36 Bed 4 Private MD: Diagnosis: Headache Presentation: 07/29 07:47 Chief complaint: Patient states: R sided headache that has been ongoing for 9 moths- 1 ss year. Pt also reports he has lost 20-30 lbs in the last month. Hx of migraines, but reports this is worse. Has an appointment with a neurologist scheduled for December. Recently prescribed Amitriptyline 2 weeks ago and is not helping. Coronavirus screen: Client denies travel out of the [place] in the last 14 days. Ebola Screen: Patient denies exposure to infectious person. Patient denies travel to an Ebola-affected area in the 21 days before illness onset. Initial Sepsis Screen: Does the patient meet any 2 criteria? No. Patient's initial sepsis screen is negative. Does the patient have a suspected source of infection? No. Patient's initial sepsis screen is negative. Risk Assessment: Do you want to hurt yourself or someone else? Patient reports no desire to harm self or others. Onset of symptoms is unknown. 07:47 Method Of Arrival: Ambulatory ss 07:47 Acuity: CHANDAN 3 ss Triage Assessment: 08:14 Headache History: The patient has had previous headaches. General: Appears in no ap3 apparent distress. Behavior is calm, cooperative, appropriate for age. Pain: Complains of pain in right eye and forehead Pain radiates to scalp. 09:42 Pain: Also complains of no other associated symptoms. ap3 Historical: - Allergies: 07:50 Tramadol; ss - Home Meds: 07:50 amitriptyline 25 mg oral tablet 1 tab daily [Active]; ss - PMHx: 07:50 Arthritis; migraines (Cyst removal from spinal cord); ss - PSHx: 07:50 Cyst removal from spinal cord; ss - Immunization history:: Client reports having NOT received the Covid vaccine. - Infectious Disease History:: Denies. - Social history:: Smoking status: Patient reports the use of cigarette tobacco products, smokes one-half pack cigarettes per day. - Family history:: not pertinent. - Hospitalizations: : No recent hospitalization is reported. Screenin:14 Abuse screen: Denies threats or abuse. Nutritional screening: No deficits noted. ap3 Tuberculosis screening: No symptoms or risk factors identified. 08:15 [facility] ED Fall Risk Assessment (Adult) History of falling in the last 3 months, ap3 including since admission No falls in past 3 months (0 pts) Confusion or Disorientation No (0 pts) Intoxicated or Sedated No (0 pts) Impaired Gait No (0 pts) Mobility Assist Device Used No (0 pt) Altered Elimination No (0 pt) Score/Fall Risk Level 0 - 2 = Low Risk Oriented to surroundings, Maintained a safe environment, Educated pt \T\ family on fall prevention, incl call for assistance when getting out of bed, Assessed \T\ reinforced patient's understanding of fall precautions, Provided non-skid footwear, Hourly rounding (assess needs \T\ fall precautionary measures) done, Used ambulatory aids as needed (educated on \T\ assisted with), Used gait belt as appropriate. Assessment: 08:13 Pain: Complains of pain in right eye and forehead Pain radiates to scalp Pain currently ap3 is 8 out of 10 on a pain scale. Pain began 8 months. Neuro: Level of Consciousness is awake, alert, obeys commands, Oriented to person, place, time, situation, Speech is normal, Facial symmetry appears normal. Cardiovascular: Patient's skin is warm and dry. Respiratory: Airway is patent Respiratory effort is even, unlabored, Respiratory pattern is regular, symmetrical. Vital Signs: 07:47 BP 132 / 96; Pulse 86; Resp 16; Temp 97.8(O); Pulse Ox 98% on R/A; Weight 68.04 kg; ss Height 5 ft. 9 in. ; Pain 8/10; 08:10 Pain 10/10; ap3 09:03 BP 110 / 76; Pulse 57; Pulse Ox 100% on R/A; ap3 07:47 Body Mass Index 22.15 (68.04 kg, 175.26 cm) ss 07:47 Pain Scale: Adult ss 08:10 Pain Scale: Adult ap3 [place] Coma Score: 09:06 Eye Response: spontaneous(4). Motor Response: obeys commands(6). Verbal Response: rn oriented(5). Total: 15. ED Course: 07:38 Patient arrived in ED. im 07:39 Kendall Guy MD is Attending Physician. rn 07:50 Triage completed. ss 07:50 Arm band placed on right wrist. ss 08:12 Inserted saline lock: 20 gauge in right forearm, using aseptic technique. ap3 08:14 Patient has correct armband on for positive identification. Bed in low position. Call ap3 light in reach. Side rails up X 1. Provided Education on: fall risk education, medication prior to administration . Pulse ox on. NIBP on. 08:24 CT Head Brain wo Cont In Process Unspecified. EDMS 08:[address] In Process Unspecified. EDMS 08:[address] In Process Unspecified. EDMS 08:25 Zuleima Alvares, TAMELA is Primary Nurse. ap3 09:41 No provider procedures requiring assistance completed. IV discontinued, intact, ap3 bleeding controlled, No redness/swelling at site. Pressure dressing applied. Administered Medications: 08:13 Drug: NS 0.9% IV 1000 ml IV at 1000 ml once Route: IV; Rate: 1000 ml; Site: right ap3 forearm; 09:22 Follow up: IV Status: Completed infusion; IV Intake: 1000ml ap3 08:13 Drug: morphine IVP or IV 4 mg IVP once over 4 mins Route: IVP; Infused Over: 4 mins; ap3 Site: right forearm; 09:22 Follow up: Response: No adverse reaction; Pain is decreased ap3 08:13 Drug: metoCLOPramide IVP 10 mg IVP once; over 1 to 2 minutes Route: IVP; Site: right ap3 forearm; 09:22 Follow up: Response: No adverse reaction ap3 09:21 Drug: Decadron - Dexamethasone IVP 10 mg IVP once Route: IVP; Site: right forearm; ap3 09:42 Follow up: Response: No adverse reaction ap3 09:22 Drug: Ketorolac IVP 30 mg IVP once Route: IVP; Site: right forearm; ap3 09:42 Follow up: Response: No adverse reaction; Pain is decreased ap3 Medication: 09:42 VIS not applicable for this client. ap3 Intake: 09:22 IV: 1000ml; Total: 1000ml. ap3 Outcome: 09:08 Discharge ordered by . rn 09:42 Discharged to home ambulatory, ap3 09:42 Condition: good 09:42 Discharge instructions given to patient, Instructed on discharge instructions, follow up and referral plans. Demonstrated understanding of instructions, follow-up care, 09:42 Patient left the ED. ap3 Signatures: Dispatcher [employer] Kendall Sahu MD MD rn Blanchard, Shelby, RN RN ss Prokisch, Amanda, RN RN ap3 Selina Giang
[2023-07-30] MEDS ORDERED: dexAMETHasone 10 MG/ML VIAL ONE (09:14)
[2023-07-30] MEDS ORDERED: KETOROLAC 30 MG/ML INJ ONE (09:14)
[2023-07-30 10:00] VITALS: BP 110/76; TEMP 97.8; O2SAT 100
== END 2023-07-30 09:42 | disposition home or self-care (01) ==
LOC: ER 07:36
DX: R51.9 Headache, unspecified (principal)
CPT/HCPCS: 96361; 70450; 70496; 70498; 96375; 96374; 99284; Q9967; J2765; J1100; J7030

== ENCOUNTER 2024-04-11 07:28 | Emergency (ER) | payer OTHER ==
[2024-04-11] MEDS ORDERED: dexAMETHasone 10 MG/ML VIAL ONE (07:46)
[2024-04-11] MEDS ORDERED: DIPHENHYDRAMINE 50 MG/ML VIAL ONE (07:46)
[2024-04-11] MEDS ORDERED: KETOROLAC 30 MG/ML INJ ONE (07:46)
[2024-04-11] MEDS ORDERED: NA CHLORIDE 0.9% 1,000 ML ONE (07:47)
[2024-04-11] MEDS ORDERED: METOCLOPRAMIDE 10 MG/2mL INJ ONE (07:47)
--- NOTE | 2024-04-11 08:07 | RAD REPORT ---
EXAM: CT brain without contrast HISTORY: HEADACHE COMPARISON: 07/30/2023 TECHNIQUE: Multiple contiguous axial images were obtained and a CT of the brain without contrast. Sag ittal and coronal reformats were performed. One or more of the following dose reduction techniques were used: Automated exposure control, adjust ment of the mA and/or kV according to patient size, and/or iterative reconstruction. FINDINGS: No evidence of hydrocephalus, intracranial hemorrhage, or extra-axial fluid collection. The brain is normal in morphology. No evidence of midline shift or areas of brain edema. The calvarium is intact. The visualized paranasal sinuses and mastoid air cells are essentially clear . IMPRESSION: No evidence of acute intracranial abnormality.
--- NOTE | 2024-04-11 08:53 | EDPHYS ---
Physician Documentation [facility] Name: Rangel Darby Age: 34 yrs Sex: Male : 1990 Arrival Date: 04/11/2024 Time: 07:28 Bed 6 Private MD: ED Physician Jamie Baltazar HPI: 04/11 07:41 This 34 yrs old Male presents to ER via Ambulatory with complaints of Headache. ms3 07:41 34-year-old male with past medical history of migraines presents to the emergency ms3 department for headache that has been ongoing for 5 days. Patient states the pain is located in his right rastafarian and is throbbing. He rates the pain a 9/10. He endorses nausea. Denies vomiting. Patient states that this headache is different than his migraines. Patient states he is seeing [facility] neurology and is scheduled for an MRI and EMG next month.. Historical: - Allergies: 07:37 tramadol; ll1 - PMHx: 07:37 Arthritis; Migraines (Cyst removal from s); ll1 - PSHx: 07:37 Cyst removal from spinal cord; ll1 - Immunization history:: Adult Immunizations up to date. - Infectious Disease History:: Denies. - Social history:: Smoking status: Patient reports the use of cigarette tobacco products, smokes .75 packs per day. ROS: 07:41 Constitutional: Negative for fever, and chills. Cardiovascular: Negative for chest ms3 pain, and palpitations. Respiratory: Negative for shortness of breath, cough, wheezing, and pleuritic chest pain, Abdomen/GI: Negative for abdominal pain, nausea, vomiting, diarrhea, and constipation, MS/Extremity: Negative for injury and deformity, Skin: Negative for injury, rash, and discoloration, 07:41 Neuro: Positive for headache, Exam: 07:41 Constitutional: This is a well developed, well nourished patient who is awake, alert, ms3 and in no acute distress. Cardiovascular: Regular rate and rhythm with a normal S1 and S2. No gallops, murmurs, or rubs. Normal PMI, no JVD. No pulse deficits. Respiratory: Lungs have equal breath sounds bilaterally, clear to auscultation and percussion. No rales, rhonchi or wheezes noted. No increased work of breathing, no retractions or nasal flaring. Abdomen/GI: Soft, non-tender, with normal bowel sounds. No distension or tympany. No guarding or rebound. No evidence of tenderness throughout. Skin: Warm, dry with normal turgor. Normal color with no rashes, no lesions, and no evidence of cellulitis. MS/ Extremity: Pulses equal, no cyanosis. Neurovascular intact. Full, normal range of motion. Vital Signs: 07:36 BP 122 / 81; Pulse 93; Resp 16; Temp 97.8; Pulse Ox 100% on R/A; Weight 79.38 kg; ll1 Height 5 ft. 9 in. ; Pain 9/10; 08:29 BP 121 / 72; Pulse 88; Resp 16; Pulse Ox 100% on 2 lpm NC; ll1 07:36 Body Mass Index 25.84 (79.38 kg, 175.26 cm) ll1 07:36 Pain Scale: Adult ll1 MDM: 07:40 Medical Screening Exam initiated ms3 07:41 Differential diagnosis: intracerebral hemorrhage, migraine, tension headache. ms3 18:28 Data reviewed: vital signs, nurses notes, radiologic studies, CT scan, and as a result, ms3 I will discharge patient. I considered the following discharge prescriptions or medication management in the emergency department Medications were administered in the Emergency Department. See MAR. Historians other than the Patient: Spouse/Significant Other: Patient's . Counseling: I had a detailed discussion with the patient and/or guardian regarding the historical points, exam findings, and any diagnostic results supporting the discharge/admit diagnosis, radiology results, the need for outpatient follow up, to return to the emergency department if symptoms worsen or persist or if there are any questions or concerns that arise at home. Special discussion: I discussed with the patient/guardian in detail that at this point there is no indication for admission to the hospital. It is understood, however, that if the symptoms persist or worsen the patient needs to return immediately for re-evaluation. ED course: On reevaluation patient symptoms have improved. Discussed negative CT head with patient and his . Patient to follow-up with his neurologist in 2 to 3 days. Patient and his understand and agree with plan. All questions were answered. Return precautions discussed include worsening symptoms, or any other concerns. 04/11 07:40 Order name: CT Head Brain wo Cont; Complete Time: 08:11 ms3 Administered Medications: 07:54 Drug: NS 0.9% IV 1000 ml IV at 1 bolus Per protocol; to be given as a bolus over 60 ll1 minutes Route: IV; Rate: 1 bolus; Site: right antecubital; 09:02 Follow up: Response: No adverse reaction; IV Status: Completed infusion; IV Intake: ll1 1000ml 07:55 Drug: metoCLOPramide IVP 10 mg IVP once; over 1 to 2 minutes Route: IVP; Site: right ll1 antecubital; 08:26 Follow up: Response: No adverse reaction; Nausea is decreased ll1 07:55 Drug: Ketorolac IVP 10 mg 10 mg IVP once {Note: pain 9/10.} Route: IVP; Site: right ll1 antecubital; 08:26 Follow up: Response: No adverse reaction; Pain is decreased ll1 07:55 Drug: diphenhydrAMINE IVP 25 mg IVP once Route: IVP; Site: right antecubital; ll1 08:27 Follow up: Response: No adverse reaction; RASS: Alert and Calm (0) ll1 08:03 Drug: Decadron - Dexamethasone IVP 10 mg IVP once Route: IVP; Site: right antecubital; ll1 08:27 Follow up: Response: No adverse reaction ll1 Disposition Summary: 04/11/24 08:52 Discharge Ordered Notes: Location: Home ms3 Condition: Stable ms3 Diagnosis - Headache ms3 Followup: ms3 - With: Private Physician - When: 2 - 3 days - Reason: Recheck today's complaints Discharge Instructions: - Discharge Summary Sheet ll1 - General Headache Without Cause ms3 Forms: - Work release form ll1 - Medication Reconciliation Form ms3 - Antibiotic Education ms3 - Prescription Opioid Use ms3 - Patient Portal Instructions ms3 - Leadership Thank You Letter ms3 Signatures: Dispatcher [employer] Swati Su RN RN [facility] Jamie Baltazar DO DO ms3
--- NOTE | 2024-04-11 08:53 | ER ---
Nurse's Notes [facility] Name: Rangel Darby Age: 34 yrs Sex: Male : 1990 Arrival Date: 04/11/2024 Time: 07:28 Bed 6 Private MD: Diagnosis: Headache Presentation: 04/11 07:36 Chief complaint: Patient states: GONCALVES's have been getting worse past 5 days. Coronavirus ll1 screen: Client denies travel out of the [place] in the last 14 days. cough unrelated to allergies, fatigue, fever, headache. Ebola Screen: Patient denies travel to an Ebola-affected area in the 21 days before illness onset. Initial Sepsis Screen: Does the patient meet any 2 criteria? No. Patient's initial sepsis screen is negative. Does the patient have a suspected source of infection? No. Patient's initial sepsis screen is negative. Risk Assessment: Do you want to hurt yourself or someone else? Patient reports no desire to harm self or others. Onset of symptoms was April 07, 2024. 07:36 Method Of Arrival: Ambulatory 1 07:36 Acuity: CHANDAN 3 ll1 Triage Assessment: 07:38 Headache History: The patient has had previous headaches and this one is different than ll1 previous episodes. General: Appears distressed, Behavior is calm, cooperative, appropriate for age, Reports fatigue for. Pain: Complains of pain in head Pain currently is 9 out of 10 on a pain scale. Quality of pain is described as aching, throbbing, Pain began 5 days Also complains of nausea, inability to work. Neuro: Reports headache. GI: Reports nausea. Historical: - Allergies: 07:37 tramadol; ll1 - PMHx: 07:37 Arthritis; Migraines (Cyst removal from s); ll1 - PSHx: 07:37 Cyst removal from spinal cord; ll1 - Immunization history:: Adult Immunizations up to date. - Infectious Disease History:: Denies. - Social history:: Smoking status: Patient reports the use of cigarette tobacco products, smokes .75 packs per day. Screenin:45 [facility] ED Fall Risk Assessment (Adult) History of falling in the last 3 months, ll1 including since admission No falls in past 3 months (0 pts) Confusion or Disorientation No (0 pts) Intoxicated or Sedated No (0 pts) Impaired Gait No (0 pts) Mobility Assist Device Used No (0 pt) Altered Elimination No (0 pt) Score/Fall Risk Level 0 - 2 = Low Risk Maintained a safe environment, Hourly rounding (assess needs \T\ fall precautionary measures) done. Abuse screen: Denies threats or abuse. Nutritional screening: No deficits noted. Tuberculosis screening: No symptoms or risk factors identified. Assessment: 08:03 Reassessment: No changes from previously documented assessment. Patient and/or family ll1 updated on plan of care and expected duration. Pain level reassessed. Patient is alert, oriented x 3, equal unlabored respirations, skin warm/dry/pink. 08:24 Reassessment: No changes from previously documented assessment. Patient and/or family ll1 updated on plan of care and expected duration. Pain level reassessed. Dr. Baltazar back at . 09:02 Reassessment: No changes from previously documented assessment. Patient and/or family ll1 updated on plan of care and expected duration. Pain level reassessed. Patient is alert, oriented x 3, equal unlabored respirations, skin warm/dry/pink. Vital Signs: 07:36 BP 122 / 81; Pulse 93; Resp 16; Temp 97.8; Pulse Ox 100% on R/A; Weight 79.38 kg; ll1 Height 5 ft. 9 in. ; Pain 9/10; 08:29 BP 121 / 72; Pulse 88; Resp 16; Pulse Ox 100% on 2 lpm NC; ll1 07:36 Body Mass Index 25.84 (79.38 kg, 175.26 cm) ll1 07:36 Pain Scale: Adult ll1 ED Course: 07:30 Patient arrived in ED. mr 07:30 Arm band placed on Patient placed in an exam room, on a stretcher. ll1 07:31 Jamie Baltazar DO is Attending Physician. ms3 07:37 Triage completed. ll1 07:43 Swati Ballesteros, RN is Primary Nurse. ll1 07:44 Inserted saline lock: 22 gauge in right antecubital area, using aseptic technique. ll1 Blood collected. Flushed with 10 mL NS. 07:45 Patient has correct armband on for positive identification. Provided Education on: ER ll1 procedures and process. 08:03 CT Head Brain wo Cont In Process Unspecified. EDMS 08:05 Door closed. Lights dimmed. Warm blanket given. ll1 09:02 No provider procedures requiring assistance completed. Patient did not have IV access ll1 during this emergency room visit. Administered Medications: 07:54 Drug: NS 0.9% IV 1000 ml IV at 1 bolus Per protocol; to be given as a bolus over 60 ll1 minutes Route: IV; Rate: 1 bolus; Site: right antecubital; 09:02 Follow up: Response: No adverse reaction; IV Status: Completed infusion; IV Intake: ll1 1000ml 07:55 Drug: metoCLOPramide IVP 10 mg IVP once; over 1 to 2 minutes Route: IVP; Site: right ll1 antecubital; 08:26 Follow up: Response: No adverse reaction; Nausea is decreased ll1 07:55 Drug: Ketorolac IVP 10 mg 10 mg IVP once {Note: pain 9/10.} Route: IVP; Site: right ll1 antecubital; 08:26 Follow up: Response: No adverse reaction; Pain is decreased ll1 07:55 Drug: diphenhydrAMINE IVP 25 mg IVP once Route: IVP; Site: right antecubital; ll1 08:27 Follow up: Response: No adverse reaction; RASS: Alert and Calm (0) ll1 08:03 Drug: Decadron - Dexamethasone IVP 10 mg IVP once Route: IVP; Site: right antecubital; ll1 08:27 Follow up: Response: No adverse reaction ll1 Medication: 08:18 VIS not applicable for this client. ll1 Intake: 09:02 IV: 1000ml; Total: 1000ml. ll1 Outcome: 08:52 Discharge ordered by ms3 09:02 Discharged to home ambulatory, ll1 09:02 Condition: stable 09:02 Discharge instructions given to patient, Instructed on discharge instructions, follow up and referral plans. Demonstrated understanding of instructions, follow-up care, 09:03 Patient left the ED. ll1 Signatures: Dispatcher [employer] [facility] Caroline Covarrubias, Miguel Rivera mr Swati Ballesteros, RN RN ll1 Jamie Baltazar DO DO ms3
[2024-04-11 09:07] VITALS: TEMP 97.8; O2SAT 100
[2024-04-11 09:09] VITALS: BP 121/72
== END 2024-04-11 09:03 | disposition home or self-care (01) ==
LOC: ER 07:28
DX: R51.9 Headache, unspecified (principal); F17.210 Nicotine dependence, cigarettes, uncomplicated
CPT/HCPCS: 96361; 70450; 96375; 96374; 99284; J2765; J1200; J1100; J7030